=== PATIENT | female | born 2000 | race African-American/Black ===

== ENCOUNTER → 2018-03-12 | Day surgery (SDC) | payer BC ==
[2018-03-08 13:53] LABS: BASOPHILS # (AUTO) 0.1 (0.0-0.1); BASOPHILS % 0.8 % (0.0-1.0); EOSINOPHILS # (AUTO) 0.2 (0.0-0.4); EOSINOPHILS % 2.8 % (0.0-6.0); HEMATOCRIT 38.5 % (34.2-44.1); HEMOGLOBIN 12.9 g/dL (12.0-16.0); LYMPHOCYTES # (AUTO) 2.2 (1.0-3.2); LYMPHOCYTES % 34.8 % (18.0-39.1); MEAN CORPUSCULAR HEMOGLOBIN 30.1 pg (28-32); MEAN CORPUSCULAR HGB CONC 33.5 g/dL (31-35); MONOCYTES # (AUTO) 0.4 (0.2-0.8); MONOCYTES % 6.9 % (4.4-11.3); NEUTROPHILS # (AUTO) 3.5 (2.1-6.9); NEUTROPHILS % 54.4 % (38.7-80.0); PLATELET COUNT 258 x10e3/uL (140-360); RED BLOOD COUNT 4.28 x10e6/uL (3.6-5.1)
[~2018-03-12] MED LIST: BUPIVACAINE 0.25%/EPI 30ML SDV INJ ONE; DEXAMETHASONE SOD PHOS INJ 4 MG/ML VIAL ONE; FENTANYL CITRATE/PF 100MCG/2 ML INJ ONE; IBUPROFEN; KETOROLAC TROMETHAMINE 30 MG/ML VIAL ONE; LIDOCAINE HCL 2% LOCAL INJ 5 ML SDV VIAL INJ ONE; MEPERIDINE HCL INJ 25 MG/ML VIAL ONE; MIDAZOLAM HCL 2 MG/2 ML VIAL ONE; ONDANSETRON HCL INJ 2MG/ML 2ML 2 MG/ML VIAL ONE; PROPOFOL IV EMULSION 10 MG/ML 20 ML VIAL ONE; SEVOFLURANE INHAL SOLN 250 ML PEN BTL ONE
--- OUTSIDE RECORDS SUMMARY | 2018-03-12 09:33 | XMS REPORT | Clinical Summary ---
Author Author [facility] Address Unknown Phone Unavailable Care Team Providers Care Manager Local Name Role Phone Provider, Unknown PCP Allergies No Known Allergies Medications No known medications Active Problems Not on file Encounters Care Team Description Date Type Specialty Ronal Jorge MD Foreign body in vagina, initial encounter (Primary Dx) 03/01/2018 Emergency Emergency Medicine 03/01/2018 Travel after 03/11/2017 Social History Date Tobacco Use Types Packs/Day Years Used Never Smoker Smokeless Tobacco: Never Used Alcohol Use Drinks/Week oz/Week Comments Yes Alcohol Habits Answer Date Recorded How often do you have a drink containing alcohol? Never 03/01/2018 How many drinks containing alcohol do you have on Not asked a typical day when you are drinking? How often do you have six or more drinks on one Not asked occasion? Sex Assigned at Date Recorded Not on file Industry Job Start Date Occupation Not on file Not on file Not on file Travel End Travel History Travel Start No recent travel history available. Last Filed Vital Signs Time Taken Vital Sign Reading 03/01/2018 4:11 AM [employer] Blood Pressure 113/75 03/01/2018 4:11 AM [employer] Pulse 72 03/01/2018 4:11 AM [employer] Temperature 36.4 C (97.5 F) 03/01/2018 4:11 AM [employer] Respiratory Rate 18 03/01/2018 4:11 AM [employer] Oxygen Saturation 100% - Inhaled Oxygen - Concentration 03/01/2018 4:11 AM [employer] Weight 65.8 kg (145 lb) 03/01/2018 4:11 AM [employer] Height 165.1 cm (5' 5") 03/01/2018 4:11 AM [employer] Body Mass Index 24.13 Plan of Treatment Not on file Procedures Comments Procedure Name Priority Date/Time Associated Diagnosis [place] REMOVE FOREIGN BODY Routine 03/01/2018 SIMPLE 4:20 AM [employer] after 03/11/2017 Results * Foreign Body Removal (03/01/2018 4:20 AM [employer]) Narrative Performed At Ronal Jorge MD 03/01/20184:35 AM Foreign Body Removal Performed by: Ronal Jorge MD Authorized by: Ronal Jorge MD Consent: Consent obtained:Verbal Consent given by:Patient Risks discussed:Bleeding, infection, pain and incomplete removal Alternatives discussed:No treatment, alternative treatment and delayed treatment Location: Location: vagina. Pre-procedure details: Imaging:None Procedure details: Localization method:Visualized (speculum exam) Bloodless field: yes Removal mechanism:Forceps (ring forceps) Procedure complexity:Simple Foreign bodies recovered:1 Description:Tampon Intact foreign body removal: yes Post-procedure details: Neurovascular status: intact Confirmation:No additional foreign bodies on visualization Skin closure:None Patient tolerance of procedure:Tolerated well, no immediate complications Comments: Entire exam and procedure performed with female technical aide Alison in the room. after 03/11/2017 Insurance Payer Benefit Subscriber ID Type Phone Address Plan / Group BCBS BCBS xxxxxxxxxxxx PPO CHOICE PPO/SONJA ROONEY PPO Advance Directives Patient has advance care planning documents on file. For more information, cori shahid contact: Soham Valdovinos [address] [place] [phone]
--- NOTE | 2018-03-12 13:53 | Operative Report ---
DATE OF PROCEDURE: March 12, 2018 PREOPERATIVE DIAGNOSIS: Ganglion cyst of the right posterior wrist. POSTOPERATIVE DIAGNOSIS: Ganglion cyst of the right posterior wrist. OPERATION PERFORMED: Excision of ganglion cyst of the right posterior wrist. ANESTHESIA: General. COMPLICATIONS: None. ESTIMATED BLOOD LOSS: Minimal. DESCRIPTION OF PROCEDURE: With the patient lying in bed in the supine position under good general anesthesia, the right arm and hand were prepped with Betadine solution and draped in the usual manner. The area overlying the large protruding ganglion cyst in the right posterior wrist was then infiltrated with 0.25% Marcaine. An incision was made. It was carried down through the subcutaneous tissue, and immediately a well-encapsulated multilobulated large cyst about 2 cm in size was encountered. This was then slowly and carefully from all of the surrounding structures, and followed all the way down to its neck, which was then dissected underneath the fascial plane. A high ligation was then achieved with a pursestring suture of 3-0 silk and a 3-0 silk tie. The excess was resected and sent for pathological examination. The fascia was then closed over the cyst to totally bury it using interrupted sutures of 3-0 Vicryl. The subcutaneous tissue was approximated with 3-0 Vicryl, and the skin was closed with subcuticular 5-0 Vicryl. Benzoin, Steri-Strips and a dressing was applied. The sponge, lap and needle count was correct. The patient tolerated the procedure well and returned to the recovery room in stable condition. Job#: [id number] ELIZABETH
[2018-03-12 14:15] VITALS: BP 103/78
== END | disposition home or self-care (01) ==
LOC: OR 09:30
PROVIDERS: ATTEND Surgery
DX: M67.431 Ganglion, right wrist (principal); Z01.812 Encounter for preprocedural laboratory examination
CPT/HCPCS: 25111; 36415; 81025; 85025; 88304; J1100; J1885; J2001; J2175; J2250; J2405; J2704